=== PATIENT | female | born 1975 | race Caucasian/White ===

== ENCOUNTER → 2020-09-15 | Outpatient (CLI) | payer OTHER | END | disposition home or self-care (01) | LOC: CVU 12:37 | PROVIDERS: ATTEND Internal Medicine | DX: I49.1 Atrial premature depolarization (principal); I49.9 Cardiac arrhythmia, unspecified; R00.2 Palpitations; G45.9 Transient cerebral ischemic attack, unspecified; Z87.891 Personal history of nicotine dependence | CPT/HCPCS: 93306 ==